=== PATIENT | female | born 1970 | race Caucasian/White ===

== ENCOUNTER 2017-08-15 10:25 | Emergency (ER) | payer BC ==
[~2017-08-15] VITALS: Ht 162.6 cm; Wt 76.9 kg
[2017-08-15 10:27] VITALS: BP 118/70; PULSE 78; RESP 16; TEMP 97.6; O2SAT 97
[2017-08-15] MEDS ORDERED: CITA40TA4 PO (11:07)
[2017-08-15] MEDS ORDERED: CRANCAP2 PO (11:07)
[2017-08-15] MEDS ORDERED: ADDE10 PO (11:07)
[2017-08-15] MEDS ORDERED: TRAZ100T10 PO (11:07)
--- NOTE | 2017-08-15 11:11 | PD ---
HPI Chief Complaint: Palpitations Time Seen by Provider: 11:01 Travel History International Travel<30 days: No Contact w/Intl Traveler<30days: No Traveled to known affect area: No History of Present Illness HPI 47yo F with PMH of PTSD, ADD here with c/o episode of feeling palpitations along with hotness in her chest and throat. Said it lasted minutes and now she has generalized weakness. Said she has had this episode before and has had panic attacks before. Pt also feels shaky in her hands. She wants answers and to make sure everything is ok. Denies any fever, cough, chest pain, sob, n/v, abdominal pain, focal weakness or numbness. PFSH Past Medical History Anxiety: Yes (ptsd, panic disorder) Depression: Yes Heart Rhythm Problems: Yes (irregular since childhood) Cancer: Yes (precancerous cells on uterus/freezing) Tetanus Vaccination: > 5 Years Influenza Vaccination: No ?: Not Social History Alcohol Use: Yes (occ) Tobacco Use: No Allergies-Medications (Allergen,Severity, Reaction): Coded Allergies: No Known Allergies (Verified Allergy, Unknown, 08/15/17) Reported Meds & Prescriptions Reported Meds & Active Scripts Active Reported Cranberry Urinary Comfort (Vitamins C & E) 1 Cap 2 Cap PO DAILY Adderall (Amphetamine-Dextroamphetamine) 10 Mg Tab 10 Mg PO DAILY Avoid late evening doses. Space doses at least 4 to 6 hours if more than once/day dosing. Citalopram (Citalopram Hydrobromide) 40 Mg Tab 40 Mg PO HS Trazodone (Trazodone HCl) 100 Mg Tablet 100 Mg PO HS Review of Systems Except as stated in HPI: all other systems reviewed are Neg Physical Exam Narrative GENERAL: 47yo F not in distress. SKIN: Focused skin assessment warm/dry. HEAD: Atraumatic. Normocephalic. EYES: Pupils equal and round. No scleral icterus. No injection or drainage. ENT: No nasal bleeding or discharge. Mucous membranes pink and moist. NECK: Trachea midline. No JVD. CARDIOVASCULAR: Regular rate and rhythm. No murmur appreciated. RESPIRATORY: No accessory muscle use. Clear to auscultation. Breath sounds equal bilaterally. GASTROINTESTINAL: Abdomen soft, non-tender, nondistended. MUSCULOSKELETAL: No obvious deformities. No clubbing. No cyanosis. No edema. NEUROLOGICAL: Awake and alert. No obvious cranial nerve deficits. Motor grossly within normal limits in all extremities. Sensation equal. Normal speech. PSYCHIATRIC: Anxious appearing. Data Data Last Documented VS Vital Signs Date Time Temp Pulse Resp B/P (MAP) Pulse Ox O2 Delivery O2 Flow Rate FiO2 08/15/17 10:27 97.6 78 16 118/70 (86) 97 Orders Orders Electrocardiogram (08/15/17 ) Basic Metabolic Panel (Bmp) (08/15/17 11:07) Thyroid Stimulating Hormone (08/15/17 11:07) Magnesium (Mg) (08/15/17 11:07) Lorazepam Inj (Ativan Inj) (08/15/17 11:15) Labs Laboratory Tests Test 08/15/17 11:20 Blood Urea Nitrogen 13 MG/DL Creatinine 0.66 MG/DL Random Glucose 88 MG/DL Calcium Level 8.6 MG/DL Magnesium Level 2.2 MG/DL Sodium Level 141 MEQ/L Potassium Level 3.9 MEQ/L Chloride Level 107 MEQ/L Carbon Dioxide Level 29.3 MEQ/L Anion Gap 5 MEQ/L Estimat Glomerular Filtration Rate 96 ML/MIN Thyroid Stimulating Hormone 3rd Gen 0.649 uIU/ML MDM Medical Decision Making Medical Screen Exam Complete: Yes Emergency Medical Condition: Yes Interpretation(s) EKG: NSR 71bpm. Normal axis. No ST segment elevation or depression. QTc 425ms. Differential Diagnosis Anxiety vs. hyperthyroid vs. dehydration vs. electrolyte abnormality Narrative Course 47yo F here with episodes of what sounds like panic attacks. Pt said she felt palpitations but heart rate has been in the 70s here. BMP unremarkable. Normal magnesium. Normal TSH. EKG unremarkable. Pt given ativan and reevaluated at bedside. Pt feels better and currently has no complaints. Return precautions given. Diagnosis Primary Impression: Anxiety Patient Instructions: General Instructions Departure Forms: Tests/Procedures Additional Instructions: Please follow up with your primary care physician. Return to the ED if symptoms worsen. Med/Other Pt SpecificInfo: No Change to Meds Disposition: 01 DISCHARGE HOME Condition: Stable Otilia Montana August 15, 2017 11:11
[2017-08-15] MEDS ORDERED: LORazepam 2 MG/ML VIAL IV PUSH ONE (11:15)
[2017-08-15 11:40] LABS: CALCIUM 8.6 MG/DL (8.5-10.1)
[2017-08-15 11:41] LABS: BICARBONATE 29.3 MEQ/L (21.0-32.0); MAGNESIUM 2.2 MG/DL (1.5-2.5)
[2017-08-15 11:44] LABS: CREATININE 0.66 MG/DL (0.50-1.00)
[2017-08-15 11:50] VITALS: BP 108/68; PULSE 75; RESP 18; O2SAT 98
[2017-08-15 12:53] VITALS: BP 98/62
[2017-08-15 13:42] VITALS: BP 111/64; PULSE 70; RESP 18; O2SAT 98
--- NOTE | 2017-08-15 17:41 | EKG ---
Date Performed: 08/15/2017 Time Performed: 11:19:12 PTAGE: 47 years EKG: Sinus rhythm NORMAL ECG NO PREVIOUS TRACING DOCTOR: Cally Lott Interpretating Date/Time 08/15/2017 16:29:07
== END 2017-08-15 14:02 | disposition home or self-care (01) ==
LOC: PHED 10:25
DX: F41.9 Anxiety disorder, unspecified (principal); R00.2 Palpitations; F43.10 Post-traumatic stress disorder, unspecified; R53.1 Weakness; F98.8 Other specified behavioral and emotional disorders with onset usually occurring in childhood and adolescence; Z79.899 Other long term (current) drug therapy
CPT/HCPCS: 80048; 83735; 84443; 93005; 96374; 99284; J2060